=== PATIENT | female | born 1980 | race African-American/Black ===

== ENCOUNTER 2016-07-12 00:54 | Emergency (ER) | payer OTHER ==
[~2016-07-12] VITALS: Ht 160 cm; Wt 50.0 kg
[~2016-07-12 00:54] MED LIST: MIRT30TA5 PO; OLAN10TA7 PO; OLAN5TAB5 PO; OLAN5TAB68 PO; TRAZ100T15 PO
[2016-07-12 01:27] VITALS: Ht 160 cm; Wt 50.0 kg
[2016-07-12] MEDS ORDERED: LORAZEPAM 1 MG TAB PO ONE (05:00)
--- NOTE | 2016-07-12 05:10 | ERA ---
ER Documentation Chief Complaint Date/Time DATE: 07/12/16 TIME: 05:09 Chief Complaint FLETCHER AND BODY PAIN, DENIES HI/SI, AGITATED HPI This is a 36-year-old female with headache and body pain. She denies H HI or SI. Patient does say that "they are out to get her " ROS All systems reviewed and are negative except as per history of present illness. Medications Home Meds Active Scripts Olanzapine* (Zyprexa* Zydis) 5 Mg Tab, 5 MG PO BID, #30 TAB Prov:LEKKOS,APOSTOLOS A. DO 03/13/16 Olanzapine* (Zyprexa*) 5 Mg Tablet, 5 MG PO BID, #30 TAB Prov:LEKKOS,APOSTOLOS A. DO 02/22/16 Reported Medications Mirtazapine* (Mirtazapine*) 30 Mg Tablet, 30 MG PO HS, TAB 02/08/16 Olanzapine* (Zyprexa*) 10 Mg Tablet, 10 MG PO BID, #30 TAB 02/08/16 Trazodone Hcl* (Trazodone Hcl*) 100 Mg Tablet, 200 MG PO QHS, #30 TAB 02/08/16 Allergies Allergies: Coded Allergies: No Known Allergies (Verified Allergy, Mild, 02/22/16) PMhx/Soc History of Surgery: Yes () Anesthesia Reaction: No Hx Neurological Disorder: No Hx Respiratory Disorders: No Hx Cardiac Disorders: No Hx Psychiatric Problems: Yes (BIPOLAR, SCHIZO) Hx Miscellaneous Medical Probl: No Hx Alcohol Use: No Hx Substance Use: Yes (marijuana, meth) Hx Tobacco Use: Yes Smoking Status: Current every day smoker Physical Exam Vitals Vital Signs Date Time Temp Pulse Resp B/P Pulse Ox O2 Delivery O2 Flow Rate FiO2 07/12/16 01:27 98.3 113 20 122/82 100 Physical Exam Const: [] Head: Atraumatic Eyes: Normal Conjunctiva ENT: Normal External Ears, Nose and Mouth. Neck: Full range of motion..~ No meningismus. Resp: Clear to auscultation bilaterally Cardio: Regular rate and rhythm, no murmurs Abd: Soft, non tender, non distended. Normal bowel sounds Skin: No petechiae or rashes Back: No midline or flank tenderness Ext: No cyanosis, or edema Neur: Awake and alert Psych: Normal Mood and Affect Results 24 hrs Current Medications Medications (Trade) Dose Ordered Sig/Johanny Route PRN Reason Start Time Stop Time Status Last Admin Dose Admin Lorazepam (Ativan) 1 mg ONCE ONCE PO 07/12/16 05:00 07/12/16 05:01 DC 07/12/16 04:52 Procedures/MDM Patient's behavioral symptoms have stabilized while in the department. Patient is medically cleared and appropriate for psychiatric evaluation and work up. No e/o neurologic, toxic, infectious, or metabolic cause. HI, I do feel the patient is mildly psychotic. Patient was pending telemetry psychiatry Departure Diagnosis: Primary Impression: Psychological disorder Condition: Stable MEME LIZ Jul 12, 2016 05:10
[2016-07-12 05:21] LABS: ADD SCAN DIFF NO
[2016-07-12 05:36] LABS: BASOPHILS % 0.3 % (0.0-2.0); EOSINOPHILS # 0.1 10^3/ul (0.0-0.5); EOSINOPHILS % 1.2 % (0.0-7.0); HEMATOCRIT 44.8 % (37.0-47.0); HEMOGLOBIN 15.3 g/dl (12.0-16.0); LYMPHOCYTES # 3.5 10^3/ul (0.8-2.9); LYMPHOCYTES % 33.9 % (15.0-51.0); MEAN CORPUSCULAR HEMOGLOBIN 31.6 pg (29.0-33.0); MEAN CORPUSCULAR HGB CONC 34.2 g/dl (32.0-37.0); MEAN CORPUSCULAR VOLUME 92.6 fl (82.0-101.0); MEAN PLATELET VOLUME 9.6 fl (7.4-10.4); MONOCYTE # 0.9 10^3/ul (0.3-0.9); MONOCYTES % 8.7 % (0.0-11.0); NEUTROPHIL # 5.7 10^3/ul (1.6-7.5); NEUTROPHILS % 55.5 % (39.0-77.0); PLATELET COUNT 307 10^3/UL (140-415); RED BLOOD COUNT 4.84 10^6/ul (4.20-5.40); RED CELL DISTRIBUTION WIDTH 14.1 % (11.5-14.5); WHITE BLOOD COUNT 10.2 10^3/ul (4.8-10.8)
[2016-07-12 05:48] LABS: ALBUMIN 5.1 g/dl (3.3-4.9); CHLORIDE 106 mmol/L (97-110)
[2016-07-12 05:49] LABS: POTASSIUM 3.3 mmol/L (3.5-5.1); SODIUM 142 mmol/L (135-144)
[2016-07-12 05:51] LABS: ALANINE AMINOTRANSFERASE 28 IU/L (13-69); ALBUMIN/GLOBULIN RATIO 1.27; ALKALINE PHOSPHATASE 86 IU/L (42-121); ANION GAP 22 (8-16); ASPARTATE AMINO TRANSFERASE 31 IU/L (15-46); BILIRUBIN,INDIRECT 0.6 mg/dl (0-1.1); BILIRUBIN,TOTAL 0.6 mg/dl (0.2-1.3); BLOOD UREA NITROGEN 21 mg/dl (7-20); CARBON DIOXIDE 17 mmol/L (21-31); CREATININE 0.73 mg/dl (0.44-1.00); GLUCOSE 88 mg/dl (70-220); TOTAL PROTEIN 9.1 g/dl (6.1-8.1)
[2016-07-12 05:52] LABS: CALCIUM 9.8 mg/dl (8.4-10.2)
[2016-07-12 06:01] LABS: ETHANOL < 10.0 mg/dl
[2016-07-12 06:11] LABS: ACETAMINOPHEN < 10.0 ug/ml (10.0-30.0); SALICYLATE < 1.0 mg/dl (5.0-30.0)
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
[2016-07-12] MEDS ORDERED: POTASSIUM CHLORIDE (SR) 20 MEQ TAB PO STA (07:26)
--- NOTE | 2016-07-12 07:26 | QN ---
Documentation Comment I reviewed the patient's labs and the patient is now medically clear for psychiatric transfer. We will attempt to arrange a psychiatric facility for placement. AILYN LOUISE MD Jul 12, 2016 07:26
[2016-07-12] MEDS ORDERED: LORAZEPAM 2 MG INJ IM ONE (08:00)
[2016-07-12] MEDS ORDERED: HALOPERIDOL 5 MG INJ IM ONE (08:00)
[2016-07-12] MEDS ORDERED: DIPHENHYDRAMINE 50 MG INJ IM ONE (08:30)
[2016-07-12 10:33] LABS: ADD UMIC YES; URINE BILIRUBIN (Dip) 1+ (NEGATIVE); URINE BLOOD (Dip) 3+ (NEGATIVE); URINE COLOR LT. YELLOW (YELLOW); URINE GLUCOSE (Dip) NEGATIVE (NEGATIVE); URINE KETONES (Dip) 3+ (NEGATIVE); URINE LEUKOCYTE ESTERASE (Dip) NEGATIVE (NEGATIVE); URINE NITRITE (Dip) NEGATIVE (NEGATIVE); URINE TOTAL PROTEIN (Dip) 2+ (NEGATIVE); URINE UROBILINOGEN (Dip) 0.2 E.U./dL (0.1-1.0)
[2016-07-12 11:33] LABS: BACTERIA,URINE FEW; ICTOTEST NEGATIVE (NEGATIVE); URINE RBCS 25-50 /HPF (0)
[2016-07-12 12:21] LABS: BARBITURATES Negative (NEGATIVE); BENZODIAZEPINES Negative (NEGATIVE); CANNABINOIDS Positive (NEGATIVE); OPIATES Negative (NEGATIVE)
[2016-07-12 12:34] LABS: COCAINE Negative (NEGATIVE)
[2016-07-13 00:29] VITALS: BP 91/59; PULSE 95; RESP 22; TEMP 99
== END 2016-07-13 00:26 ==
LOC: E/R 00:54
DX: F99 Mental disorder, not otherwise specified (principal); F17.210 Nicotine dependence, cigarettes, uncomplicated
CPT/HCPCS: 36415; 80053; 80306; 80307; 81001; 81003; 84703; 85025; 96372; J1200; J1630; J2060; Z7502; Z7610

== ENCOUNTER 2016-10-18 15:21 | Emergency (ER) | END 2016-10-19 17:51 | DX: R45.851 Suicidal ideations (principal); R40.2252 Coma scale, best verbal response, oriented, at arrival to emergency department; F17.210 Nicotine dependence, cigarettes, uncomplicated; R40.2142 Coma scale, eyes open, spontaneous, at arrival to emergency department; R40.2362 Coma scale, best motor response, obeys commands, at arrival to emergency department | CPT/HCPCS: 36415; 80053; 80306; 80307; 81001; 85025; Z7502; Z7610 ==

== ENCOUNTER 2016-11-08 01:01 | Emergency (ER) | payer OTHER ==
[~2016-11-08] VITALS: Ht 162.6 cm; Wt 55.0 kg
[2016-11-08 01:05] VITALS: Ht 162.6 cm; Wt 55.0 kg
--- NOTE | 2016-11-08 03:55 | ERA ---
ER Documentation Chief Complaint Date/Time DATE: 11/08/16 TIME: 03:54 Chief Complaint hearing voices, denies si/hi HPI 36-year-old female who comes in because of hearing voices. Denies suicidal homicidal ideation. But the voices are telling her to hurt herself. Denies any other current issues ROS All systems reviewed and are negative except as per history of present illness. Medications Home Meds No Active Prescriptions or Reported Meds Allergies Allergies: Coded Allergies: No Known Allergies (Verified Allergy, Mild, 10/18/16) PMhx/Soc History of Surgery: Yes () Anesthesia Reaction: No Hx Neurological Disorder: No Hx Respiratory Disorders: No Hx Cardiac Disorders: No Hx Psychiatric Problems: Yes (BIPOLAR, SCHIZO) Hx Miscellaneous Medical Probl: No Hx Alcohol Use: No Hx Substance Use: Yes (marijuana, meth) Hx Tobacco Use: Yes Smoking Status: Current every day smoker Physical Exam Vitals Vital Signs Date Time Temp Pulse Resp B/P Pulse Ox O2 Delivery O2 Flow Rate FiO2 11/08/16 01:05 97.7 98 20 111/82 100 Physical Exam Const: [] Head: Atraumatic Eyes: Normal Conjunctiva ENT: Normal External Ears, Nose and Mouth. Neck: Full range of motion..~ No meningismus. Resp: Clear to auscultation bilaterally Cardio: Regular rate and rhythm, no murmurs Abd: Soft, non tender, non distended. Normal bowel sounds Skin: No petechiae or rashes Back: No midline or flank tenderness Ext: No cyanosis, or edema Neur: Awake and alert Psych: Normal Mood and Affect Procedures/MDM Patient's behavioral symptoms have stabilized while in the department. Patient is medically cleared and appropriate for psychiatric evaluation and work up. No e/o neurologic, toxic, infectious, or metabolic cause. Departure Diagnosis: Primary Impression: Psychological disorder Condition: Stable MEME LIZ Nov 08, 2016 03:55
[2016-11-08] MEDS ORDERED: OLAN10TA32 PO (03:59)
[2016-11-08 04:38] LABS: BASOPHILS % 0.5 % (0.0-2.0); EOSINOPHILS # 0.5 10^3/ul (0.0-0.5); EOSINOPHILS % 8.8 % (0.0-7.0); HEMATOCRIT 35.9 % (37.0-47.0); HEMOGLOBIN 12.6 g/dl (12.0-16.0); LYMPHOCYTES # 3.1 10^3/ul (0.8-2.9); LYMPHOCYTES % 50.6 % (15.0-51.0); MEAN CORPUSCULAR HEMOGLOBIN 32.3 pg (29.0-33.0); MEAN CORPUSCULAR HGB CONC 35.1 g/dl (32.0-37.0); MEAN CORPUSCULAR VOLUME 92.1 fl (82.0-101.0); MEAN PLATELET VOLUME 9.5 fl (7.4-10.4); MONOCYTE # 0.5 10^3/ul (0.3-0.9); MONOCYTES % 8.2 % (0.0-11.0); NEUTROPHIL # 1.9 10^3/ul (1.6-7.5); NEUTROPHILS % 31.6 % (39.0-77.0); PLATELET COUNT 226 10^3/UL (140-415); RED CELL DISTRIBUTION WIDTH 13.5 % (11.5-14.5); WHITE BLOOD COUNT 6.1 10^3/ul (4.8-10.8)
--- NOTE | 2016-11-08 04:44 | PSY ---
Date/Time of Note Date/Time of Note DATE: 11/08/16 TIME: 04:42 Psychiatric Subjective Eval Consent Pt consented to telemedicine: Yes Subjective Evaluation Patient location: emergency Chief Complaint: hearing voices, denies si/hi Medical history Problems Medical Problems: (1) Acute exacerbation of psychosis Status: Acute (2) Acute psychosis Status: Acute (3) Amphetamine abuse Status: Acute (4) Amphetamine abuse Status: Acute (5) Bipolar 1 disorder Status: Acute (6) Bipolar affective, manic Status: Acute (7) Low back pain Status: Acute (8) Not currently Status: Acute (9) Patient left without being seen Status: Acute (10) Psychological disorder Status: Acute (11) Psychological disorder Status: Acute (12) Psychological disorder Status: Acute (13) Suicidal ideation Status: Acute Allergies: Coded Allergies: No Known Allergies (Unverified Allergy, Unknown, 11/08/16) Psychiatric Objective Eval Mental Status Examination: Laboratory Results Laboratory Tests Test 11/08/16 04:28 Assessment Additional comments: IDENTIFYING INFORMATION: 36 year old -Serbian Female patient who is currently located at the hospital and for whom psychiatric consultation was requested. SOURCES OF INFORMATION: The patient who appears to be somewhat reliable and the medical records; the nursing staff. CHIEF COMPLAINT: "I had to leave where I was staying at". HISTORY OF PRESENT ILLNESS: The patient was interviewed via telemedicine in the presence of and under the supervision of nursing staff of the hospital. The consent to conducting this interview via telemedicine was obtained by the nursing staff at the hospital. WALE Daniel reports that the patient was brought in c/o . Patient was staying at a [facility] but was just kicked out. Pt denied having SI and HI. According to the emergency room physician's note, the patient admits to hearing voices telling her to hurt herself, but denied having suicidal or homicidal ideation. Dr. Ken reports of the patient told him that she had command auditory hallucinations telling her to hurt herself. She appeared to be tangential on exam. The patient reports that she was kicked out of the [facility] that she was staying at. Initially she said that she hears something in her ear; she reports that something was beeping, ringing and had stings in her ear. Reports that she does not feel safe at this time. She denies having other type of voices, SI, paranoia, VH. She admits to feeling depressed for about 50% of the time, Denies having anhedonia, insomnia, fatigue, low appetite. The patient denies using alcohol heavily or regularly. The patient denies using any other substances. In terms of past psychiatric history, the patient reports having a history of past psychiatric hospitalizations a few weeks ago. The patient reports having a history of no past suicide attempts. PAST MEDICAL HISTORY: none. CURRENT MEDICATIONS: zyprexa 10 mg po bid. ALLERGIES TO MEDICATIONS: NKDA. SOCIAL HISTORY: born and raised in [facility]; single, no children; 12th grade education; not employed; no access to firearms. LABORATORY TESTS: labs from today are pending. October 19, 2016, UDS was positive for amphetamines, cannabinoids, alcohol was not detected, CMP showed a potassium of 3.0, CBC showed a hematocrit of 34.5. FAMILY HISTORY: unknown. REVIEW OF SYSTEMS: Constitutional (e.g., fever, weight loss): negative; Eyes, Ears, Nose, Mouth, Throat: negative; Cardiovascular: negative; Respiratory: negative; Gastrointestinal: negative; Genitourinary: negative; Musculoskeletal: + leg pain; Integumentary (skin and/or breast): negative; Neurological: negative; Psychiatric: as per HPI; Endocrine: negative; Hematologic/Lymphatic: negative; Allergic/Immunologic: negative. MENTAL STATUS EXAMINATION: General Appearance and Behavior: Calm, cooperative with the interview, pleasant with the current interviewer, makes poor eye contact, poorly groomed, no abnormal movements noted. Speech: Slow rate, regular rhythm, increased latency, low volume. Flow of thought: illogical, tangential at times, Content of thought: ppositive for command auditory hallucinations, no visual hallucinations, positive for bizarre delusions, denies having suicidal ideation but admitted to having command auditory hallucinations telling her to hurt herself; no homicidal ideation. Mood: "depressed". Affect: dysthymic, dysphoric, not reactive. Attention: normal based on the interview. Insight: fair. Judgment: poor. Memory: normal based on the interview. Sensorium: alert and oriented to person, place and date. ASSESSMENT: The patient's presentation and history are consistent with the diagnosis of unspecified psychotic disorder, stimulant use disorder. The patient presents with an exacerbation of psychosis in the context of questionable medication compliance. The patient denies having used any drugs anytime recently; however she does have a UDS positive for stimulants and cannabis from a few weeks ago. [place] I: unspecified psychotic disorder, stimulant use disorder. [place] II: Deferred. Grinnell III: see PMH. Grinnell IV: social stressors. Grinnell V: GAF: 10. PLAN: - Medication management: Would start zyprexa 5 mg po bid. Would start haloperidol 5 mg IM PRN severe agitation q4 hours. Would start diphenhydramine 50 mg IM PRN severe agitation q4 hours. Would start lorazepam 2 mg IM PRN severe agitation q4 hours Will defer to the inpatient psychiatry team for other medication changes. - Labs: please check CBC, CMP, alcohol level, UDS. - Psychotherapy: Provided supportive psychotherapy and psychoeducation. - Disposition: Would recommend involuntary admission to the inpatient psychiatric unit given the severity of the patient's psychiatric condition and the fact that the patient is an imminent danger to self and/or others so long as the patient has been cleared medically for admission to psychiatry. Inpatient psychiatric admission is at this time the least restrictive environment where the patient can receive the psychiatric care that is needed. Would place on suicide precautions. The patient fulfills criteria for being placed on involuntary hold due to being a danger to self or others or gravely disabled. Discussed about the above plan with Dr. Ken. GONZALO HAY MD Nov 08, 2016 04:44
[2016-11-08 04:56] LABS: ALANINE AMINOTRANSFERASE 26 IU/L (13-69); ALBUMIN 4.6 g/dl (3.3-4.9); ALBUMIN/GLOBULIN RATIO 1.35; ALKALINE PHOSPHATASE 44 IU/L (42-121); ANION GAP 19 (8-16); ASPARTATE AMINO TRANSFERASE 20 IU/L (15-46); BILIRUBIN,INDIRECT 0.5 mg/dl (0-1.1); BILIRUBIN,TOTAL 0.5 mg/dl (0.2-1.3); BLOOD UREA NITROGEN 12 mg/dl (7-20); CALCIUM 9.1 mg/dl (8.4-10.2); CARBON DIOXIDE 23 mmol/L (21-31); CHLORIDE 105 mmol/L (97-110); CREATININE 0.71 mg/dl (0.44-1.00); GLUCOSE 79 mg/dl (70-220); POTASSIUM 3.4 mmol/L (3.5-5.1); SODIUM 144 mmol/L (135-144)
[2016-11-08 05:20] LABS: SALICYLATE < 1.0 mg/dl (5.0-30.0)
[2016-11-08 05:21] LABS: ETHANOL < 10.0 mg/dl
[2016-11-08 05:30] LABS: ACETAMINOPHEN < 10.0 ug/ml (10.0-30.0)
[2016-11-08] MEDS ORDERED: IBUPROFEN 600 MG TAB PO ONE (10:30)
[2016-11-08] MEDS: OLANZAPINE 5 MG TAB PO SCH ×2 (10:50→21:32)
[2016-11-08 11:08] LABS: ADD UMIC NO; UR AMORPHOUS CRYSTAL MODERATE /HPF (NONE SEEN); UR ASCORBIC ACID NEGATIVE (NEGATIVE); UR BACTERIA FEW /HPF (NONE SEEN); UR BILIRUBIN (Dip) NEGATIVE (NEGATIVE); UR BLOOD (Dip) NEGATIVE (NEGATIVE); UR CLARITY SLIGHTLY CLOUDY (CLEAR); UR COLOR YELLOW (YELLOW); UR GLUCOSE (Dip) NEGATIVE (NEGATIVE); UR KETONES (Dip) 1+ mg/dL (NEGATIVE); UR LEUKOCYTE ESTERASE (Dip) NEGATIVE Leu/ul (NEGATIVE); UR MUCUS MODERATE /HPF (NONE SEEN); UR NITRITE (Dip) NEGATIVE (NEGATIVE); UR RBC 5 /HPF (0-5); UR SPECIFIC GRAVITY (Dip) 1.025 (1.003-1.030); UR SQUAMOUS EPITHELIAL CELL FEW /HPF (FEW); UR TOTAL PROTEIN (Dip) NEGATIVE (NEGATIVE); UR UROBILINOGEN (Dip) NEGATIVE (NEGATIVE)
[2016-11-08 11:57] LABS: BARBITURATES NEGATIVE (NEGATIVE); BENZODIAZEPINES NEGATIVE (NEGATIVE); CANNABINOIDS POSITIVE (NEGATIVE); COCAINE NEGATIVE (NEGATIVE)
[2016-11-08 11:58] LABS: OPIATES NEGATIVE (NEGATIVE)
[2016-11-08] MEDS ORDERED: SOD CHLORIDE 0.9% 1,000 ML IV STA (17:24)
--- NOTE | 2016-11-08 19:06 | QN ---
Documentation Comment Observation Note: Time: 4 hours Family Hx: Negative for diabetes Evaluation: Multiple exams showed improving symptoms and no evidence of clinical decompensation. AILYN LOUISE MD Nov 08, 2016 19:06
[2016-11-09] VITALS: TEMP 98.2
[2016-11-09] MEDS: OLANZAPINE 5 MG TAB PO SCH (09:21)
[2016-11-09 12:28] VITALS: BP 92/61; PULSE 75; RESP 19
== END 2016-11-09 14:20 ==
LOC: E/R 01:01
DX: F99 Mental disorder, not otherwise specified (principal); F17.210 Nicotine dependence, cigarettes, uncomplicated
CPT/HCPCS: 80053; 80306; 80307; 81001; 84703; 85025; J7030; Z7610; 36415; 81003; 96360

== ENCOUNTER 2017-09-04 11:24 | Emergency (ER) | END 2017-09-04 13:35 | disposition home or self-care (01) ==

== ENCOUNTER 2017-09-04 20:51 | Emergency (ER) | END 2017-09-05 14:19 ==

== ENCOUNTER 2018-02-16 05:40 | Emergency (ER) | END 2018-02-16 06:11 ==